=== PATIENT | female | born 1945 | race Caucasian/White ===

== ENCOUNTER 2022-03-21 23:18 | Emergency (ER) | payer BC, MEDICARE, OTHER ==
[2022-03-21 23:41] VITALS: PULSE 89
[2022-03-22 00:06] VITALS: BP 173/92
[2022-03-22 01:11] LABS: TROPONIN I HIGH SENSITIVITY 8.9 pg/mL (<=60.3)
== END 2022-03-22 01:42 | disposition home or self-care (01) ==
LOC: JP.ED 23:18
DX: I49.1 Atrial premature depolarization (principal); F41.9 Anxiety disorder, unspecified; F32.A Depression, unspecified; E03.9 Hypothyroidism, unspecified; Z79.899 Other long term (current) drug therapy; Z79.82 Long term (current) use of aspirin; Z87.891 Personal history of nicotine dependence; Z88.0 Allergy status to penicillin; Z88.1 Allergy status to other antibiotic agents; Z88.2 Allergy status to sulfonamides
CPT/HCPCS: 36415; 80053; 84484; 85025; 99282; 99284